=== PATIENT | female | born 1965 | race African-American/Black ===

== ENCOUNTER 2020-04-07 21:52 | Emergency (ER) | payer OTHER ==
[~2020-04-07] VITALS: Ht 160 cm; Wt 88.0 kg
[~2020-04-07 21:52] MED LIST: BENAZEPRIL 20 MG; FLONAS
[2020-04-07] MEDS ORDERED: TRAMADOL 50MG TABLET PO NR (23:30)
[2020-04-08 01:17] LABS: CHLORIDE 106 mEq/L (98-107); CLARITY URINE CLEAR (CLEAR); COLOR URINE YELLOW (YELLOW); KETONES URINE NEGATIVE (NEGATIVE); LEUKOCYTE ESTERASE URINE 1+ (NEGATIVE); NITRITE URINE NEGATIVE (NEGATIVE); OCCULT BLOOD URINE NEGATIVE (NEGATIVE); PROTEIN URINE NEGATIVE (NEGATIVE); SPECIFIC GRAVITY URINE 1.018 (1.005-1.030); UROBILINOGEN URINE 0.2 E.U./dL (0.2-1.0)
[2020-04-08 01:22] LABS: BASOPHILS % 0.5 % (0.0-2.0); EOSINOPHILS % 1.5 % (0.0-5.0); HEMATOCRIT. 43.9 % (36.0-48.0); HEMOGLOBIN. 14.9 g/dL (12.0-16.0); LYMPHOCYTES % 22.5 % (20.0-50.0); MEAN CORPUSCULAR HEMOGLOBIN 31.4 pg (28.0-32.0); MEAN CORPUSCULAR VOLUME 92.2 fL (81.0-99.0); MEAN PLATELET VOLUME 9.5 fl (7.4-10.4); MONOCYTES % 4.6 % (2.0-8.0); NEUTROPHILS % 70.9 % (40.0-76.0); PLATELET 242 x1000/uL (130-400); RED BLOOD CELL COUNT 4.76 mill/uL (4.2-5.4); RED CELL DISTRIBUTION WIDTH 12.8 % (11.6-14.6)
[2020-04-08 02:25] VITALS: BP 119/76
== END 2020-04-08 03:11 | disposition home or self-care (01) ==
LOC: ER 21:52
DX: R50.9 Fever, unspecified (principal); M79.18 Myalgia, other site; R53.81 Other malaise; R03.0 Elevated blood-pressure reading, without diagnosis of hypertension; R53.1 Weakness; Z20.828 Contact with and (suspected) exposure to other viral communicable diseases
CPT/HCPCS: 36415; 71045; 80053; 81003; 85025; 87426; 93005; 99284

== ENCOUNTER 2020-09-18 23:25 | Emergency (ER) | payer OTHER ==
[~2020-09-18] VITALS: Ht 160 cm; Wt 79.0 kg
[2020-09-18 23:29] VITALS: BP 120/78
[2020-09-18] MEDS ORDERED: ACETAMINOPHEN 325MG TABLET PO ONE (23:45)
== END 2020-09-19 01:24 | disposition home or self-care (01) ==
LOC: ER 23:25
DX: M79.18 Myalgia, other site (principal); R50.9 Fever, unspecified; R11.2 Nausea with vomiting, unspecified; Z20.822 Contact with and (suspected) exposure to COVID-19; I10 Essential (primary) hypertension
CPT/HCPCS: 81025; 93005; 99283